=== PATIENT | female | born 1975 ===

== ENCOUNTER 2020-11-26 06:22 | Day surgery (SDC) | payer BC ==
[2020-11-26] MEDS ORDERED: Ringers Lactate 1,000 ML IV ONE (07:15)
[2020-11-26] MEDS ORDERED: propofoL 200 MG/20 ML VIAL IV ONE (07:47)
[2020-11-26] MEDS ORDERED: ONDANSETRON 4 MG/2 ML VIAL ONE (07:47)
[2020-11-26] MEDS ORDERED: LIDOCAINE 1% MPF 5 ML VIAL ONE (07:47)
--- NOTE | 2020-11-26 07:57 | ENDO RPT ---
[address], [address] EGD PROCEDURE REPORT EXAM DATE: 11/26/2020 PATIENT NAME: Audelia Ospina MR#: [id number] BIRTHDATE: 1975 ATTENDING: Jono Car Dr STATUS: outpatient CERTIFIED SURGICAL TECH/FIRST ASSISTANT: Donna Ruiz RN and Cathy Simmons RN INDICATIONS: The patient is a 44 yr old Female here for an EGD due to GERD and chronic unexplained diarrhea PROCEDURE PERFORMED: EGD with biopsy MEDICATIONS: Per Anesthesia. TOPICAL ANESTHETIC: none CONSENT: The patient understands the risks and benefits of the procedure and understands that these risks include, but are not limited to: sedation, allergic reaction, infection, perforation and/or bleeding. Alternative means of evaluation and treatment include, among others: physical exam, x-rays, and/or surgical intervention. The patient elects to proceed with this endoscopic procedure. DESCRIPTION OF PROCEDURE: During intra-op preparation period all mechanical medical equipment was checked for proper function. Hand hygiene and appropriate measures for infection prevention was taken. Procedure, possible complications, and alternatives including but not limited to the possibility of bleeding, perforation, tear, infection, sepsis, need for surgery, need for blood transfusion, and anesthesia related complications were explained to the patient. After the risks, benefits and alternatives of the procedure were thoroughly explained, Informed consent was verified, confirmed and timeout was successfully executed by the treatment team. The patient was placed in the left lateral position. The patient was anesthetized with topical anesthesia. Through the anesthetized oropharyngeal area, the scope was passed without any difficulty. The EG-[id number] ([id number]) endoscope was introduced through the mouth and advanced to the third portion of the duodenum. Retroflexed views revealed a small hiatal hernia. The gastroscope was then slowly withdrawn and removed. LA class A esophagitis was found in the lower esophagus. A small hiatal hernia was found. Mild gastritis was found in the antrum. Multiple biopsies were obtained and sent to pathology. Small bowel biopsies obtained with history of chronic unexplained diarrhea. ADVERSE EVENTS: There were no complications. IMPRESSIONS: 1. LA class A esophagitis in the lower esophagus 2. Small hiatal hernia 3. Mild gastritis in the antrum, s/p biopsies 4. Small bowel biopsies obtained with history of chronic unexplained diarrhea RECOMMENDATIONS: 1. await biopsy results 2. acid suppression therapy REPEAT EXAM: Jono Car Dr eSigned: Jono Car Dr 11/26/2020 7:57 AM cc: CPT CODES: ICD9 CODES: PATIENT NAME: Audelia Ospina MR#: [id number]
--- NOTE | 2020-11-26 08:26 | ENDO RPT ---
[address], [address] COLONOSCOPY PROCEDURE REPORT EXAM DATE: 11/26/2020 PATIENT NAME: Audelia Ospina MR #: [id number] BIRTHDATE: 1975 ATTENDING: Jono Car Dr STATUS: outpatient ELECTRICAL SUPERVISOR: Donna Ruiz RN and Cathy Simmons RN INDICATIONS: The patient is a 44 yr old Female here for a colonoscopy due to change in bowel habits, unexplained diarrhea > constipation PROCEDURE PERFORMED: Colonoscopy with biopsy MEDICATIONS: Per Anesthesia. ESTIMATED BLOOD LOSS: None CONSENT: The patient understands the risks and benefits of the procedure and understands that these risks include, but are not limited to: sedation, allergic reaction, infection, perforation and/or bleeding. Alternative means of evaluation and treatment include, among others: physical exam, x-rays, and/or surgical intervention. The patient elects to proceed with this endoscopic procedure. DESCRIPTION OF PROCEDURE: During intra-op preparation period all mechanical medical equipment was checked for proper function. Hand hygiene and appropriate measures for infection prevention was taken. Procedure, possible complications, alternatives including, but not limited to possibility of bleeding, perforation, tear, infection, sepsis, need for surgery, need for blood transfusion, were explained to the patient. After the risks, benefits and alternatives of the procedure were thoroughly explained, Informed consent was verified, confirmed and timeout was successfully executed by the treatment team. The patient was placed in the left lateral position. A digital rectal exam was performed and revealed no abnormalities of the rectum. After appropriate level of anesthesia, the scope was passed. The EG-[id number] ([id number]) and EC-[id number] ([id number]) endoscope was introduced through the anus and advanced to the terminal ileum which was intubated for a short distance. The quality of the prep was good. The instrument was then slowly withdrawn as the colon was fully examined. Scope withdrawal time was 8 minutes. COLON FINDINGS: Two diminutive smooth sessile polyps were found in the rectum. A polypectomies were performed with cold forceps. Random biopsies of the terminal ileum / right colon / left colon / rectum obtained with history of chronic unexplained diarrhea. Small internal hemorrhoids were found. Retroflexed views revealed small hemorrhoids. The scope was then completely withdrawn from the patient and the procedure terminated. ADVERSE EVENTS: There were no complications. IMPRESSIONS: 1. Two diminutive sessile polyps in the rectum; polypectomy was performed with cold forceps 2. Random biopsies of the terminal ileum / right colon / left colon / rectum obtained with history of chronic unexplained diarrhea 3. Small internal hemorrhoids 4. Intubation to terminal ileum RECOMMENDATIONS: 1. await biopsy results 2. avoid NSAIDS for 2 weeks RECALL: Return in 3 year(s) for Colonoscopy. Jono Car Dr eSigned: Jono Car Dr 11/26/2020 8:26 AM cc: CPT CODES: ICD9 CODES: 569.0 Anal and rectal polyp PATIENT NAME: Audelia OspinaLindsey MR#: [id number]
[2020-11-26 08:44] VITALS: O2SAT 100
[2020-11-26 08:45] VITALS: BP 129/86; TEMP 97.2
== END 2020-11-26 09:05 | disposition home or self-care (01) ==
LOC: OR 06:22
PROVIDERS: ATTEND Internal Medicine Gastroenterology
PROC: 0DBF8ZX Excision of Right Large Intestine, Via Natural or Artificial Opening Endoscopic, Diagnostic (ICD-10-PCS; 2020-11-26)
PROC: 0DBG8ZX Excision of Left Large Intestine, Via Natural or Artificial Opening Endoscopic, Diagnostic (ICD-10-PCS; 2020-11-26)
PROC: 0DB68ZX Excision of Stomach, Via Natural or Artificial Opening Endoscopic, Diagnostic (ICD-10-PCS; 2020-11-26)
PROC: 0DB88ZX Excision of Small Intestine, Via Natural or Artificial Opening Endoscopic, Diagnostic (ICD-10-PCS; 2020-11-26)
PROC: 0DBB8ZX Excision of Ileum, Via Natural or Artificial Opening Endoscopic, Diagnostic (ICD-10-PCS; principal; 2020-11-26 07:30)
PROC: 0DBP8ZX Excision of Rectum, Via Natural or Artificial Opening Endoscopic, Diagnostic (ICD-10-PCS; 2020-11-26 07:30)
DX: D12.8 Benign neoplasm of rectum (principal); R12 Heartburn; K59.00 Constipation, unspecified; E66.3 Overweight; K29.50 Unspecified chronic gastritis without bleeding; K20.90 Esophagitis, unspecified without bleeding; K44.9 Diaphragmatic hernia without obstruction or gangrene; Z20.822 Contact with and (suspected) exposure to COVID-19
CPT/HCPCS: 36415; 88312; 84703; 88305; 45380; 43239; U0002; J2704; J7120; J2405